=== PATIENT | female | born 1965 | race Caucasian/White ===

== ENCOUNTER → 2018-01-02 | Outpatient (CLI) | payer BC | END | disposition home or self-care (01) | LOC: KCIC MAMMO 08:58 | DX: N64.4 Mastodynia (principal) | CPT/HCPCS: 77066 ==

== ENCOUNTER → 2019-12-12 | Outpatient (CLI) | payer BC ==
--- NOTE | 2019-12-12 10:45 | RAD ---
EXAMINATION: DIGITAL DIAGNOSTIC BILATERAL, BREAST LEFT History: Clear and bloody nipple discharge from the left breast for past 2 weeks Comparison: 12/20/2011, 06/25/2015, 01/02/2018 mammographic exams. Technique: Bilateral digital diagnostic mammogram views were obtained. CAD was utilized. 3-D tomosynthesis images were acquired. Findings: Breast Tissue Density A : The breasts are almost entirely fatty. There are no dominant masses, suspicious microcalcifications, or architectural distortion. Limited left breast ultrasound exam was performed. Left subareolar imaging does not demonstrate any masses or dilated ducts. Benign-appearing left axillary lymph nodes are visualized. IMPRESSION: No mammographic evidence of malignancy on mammographic or Ltd. left breast ultrasound exam. Further evaluation with MRI of the breast without and with contrast is recommended if able. Alternatively, ductogram may be performed. Surgical consultation should be considered. BI-RADS Category 0: Incomplete: Need additional imaging evaluation. The images were reviewed with computer aided detection. Patient information is entered into the reminder system with a target due date for the next screening mammogram. Mammography is the most sensitive method for finding small breast cancers, but it does not detect them all and is not a substitute for careful clinical examination. A negative mammogram does not negate a clinically suspicious finding and should not result in delay in biopsying a clinically suspicious abnormality. "Our facility is accredited by the [employer] Mammography Program." Electronically signed by: Milad Lomeli MD (12/12/2019 10:42 AM) [id number]
== END ==
LOC: MAMMO 07:47
PROVIDERS: ATTEND Family Medicine
DX: N64.52 Nipple discharge (principal)
CPT/HCPCS: 76641; 77066

== ENCOUNTER → 2021-11-15 | Outpatient (CLI) | payer BC ==
--- NOTE | 2021-11-15 16:05 | RAD ---
Bilateral digital screening 2-D and 3-D (digital breast tomosynthesis) mammogram: Reason for examination: Routine screening. Comparison: Mammograms from 12/12/2019 and 01/02/2018. Interpretation was made with the benefit of CAD. FINDINGS: Breast density: Category A. Breast tissue is almost entirely fatty. No suspicious breast mass, malignant appearing calcifications, or architectural distortion is seen. IMPRESSION: No evidence of malignancy. Assessment: BI-RADS 1. Negative. Recommendation: Routine screening mammograms. The patient will receive a letter with the results in the mail. Patient information will be entered i nto the mammography reminder system with a target recall date for the next mammogram. A reminder mathew er will be generated. Electronically signed by: Mary Jacinto MD (11/15/2021 4:02 PM) [id number]
== END ==
LOC: MAMMO 09:45
PROVIDERS: ATTEND Family Medicine
DX: Z12.31 Encounter for screening mammogram for malignant neoplasm of breast (principal)
CPT/HCPCS: 77063; 77067